=== PATIENT | female | born 1940 | race Caucasian/White ===

== ENCOUNTER 2016-10-27 03:00 | Emergency (ER) | payer MEDICARE ==
[~2016-10-27] VITALS: Ht 165.1 cm; Wt 60.5 kg
[2016-10-27] VITALS (7 sets, daily range): BP systolic 147–180; BP diastolic 44–66; PULSE 60–64; RESP 12–16; O2SAT 95–97
[~2016-10-27 03:00] MED LIST: ALEN70TA2 PO; ALIR75PE SQ; ATOR80TA PO; CALC600T12 PO; CHOL100043 PO; FURO80TA83 PO; HYDR100T27 PO; ISOS60TA2 PO; LORA-303 PO; METO50TA3 PO; NITR0.4T SL; POTA10TA12 PO; WARF1TAB6 PO
--- NOTE | 2016-10-27 03:26 | ED.REPORT ---
HPI-General Illness Date of Service Oct 27, 2016 ED Provider: Dr. Aaron Zavala M.D. A 76 year old female with a medical history including CAD, hypertension, CHF, and atrial fibrillation s/p CABG and pacemaker placement presents to the ED with diaphoresis onset one hour prior to arrival. Associated symptoms include palpitations, lightheadedness, and shakiness. The patient took Nitro x1 at onset without relief. She denies chest pain, shortness of breath, cough, fever, arm pain, neck pain, or jaw pain. The patient has had similar symptoms in the past secondary to her CAD, though her prior anginal episodes involved arm pain and shoulder pain. This seems similar, but she denies any arm pain or shoulder pain. She states she is having palpitations as we are watching her on the monitor, and there is no abnormal cardiac activity noted. Nursing Notes Stated Complaint: SWEATS/DIZZINESS Chief Complaint: General Complaint Nursing Notes Reviewed: Yes Allergies: Coded Allergies: allopurinol (Verified Allergy, Severe, 10/27/16) niacin (Verified Allergy, Severe, 10/27/16) TAPE (Verified Allergy, Unknown, UNKNOWN, 10/27/16) Scheduled Alendronate Sodium (Fosamax) 70 Mg Tablet 70 MG PO WEEKLY Alirocumab (Praluent Pen) 75 Mg/Ml Pen.injctr 75 MG SQ [id number] Atorvastatin (Lipitor) 80 Mg Tablet 80 MG PO DAILY Calcium Carbonate (Calcium) 600 Mg Tablet 1,000 MG PO DAILY Cholecalciferol (Vitamin D3) (Vitamin D) 1,000 Unit Tablet 3,000 UNIT PO DAILY Furosemide (Lasix) 80 Mg Tablet 160 MG PO DAILY Hydralazine (Hydralazine) 100 Mg Tablet 100 MG PO BID Isosorbide MN ER (Isosorbide MN ER) 60 Mg Tab.er.24h 120 MG PO DAILY Metoprolol Tartrate (Metoprolol Tartrate) 50 Mg Tablet 50 MG PO QPM Metoprolol Tartrate (Metoprolol Tartrate) 50 Mg Tablet 100 MG PO QAM Nitroglycerin SL (Nitrostat) 0.4 Mg Tab.subl 0.4 MG SL Q5MIN Potassium Chloride ER (Potassium Chloride ER) 10 Meq Tablet 20 MEQ PO DAILY TAKE WITH FOOD Warfarin Sodium (Warfarin Sodium) 1 Mg Tablet 1.5 MG PO 2x weekly take 1.5mg on wednesday and Warfarin Sodium (Warfarin Sodium) 1 Mg Tablet 1 MG PO 5xweekly take 1mg on wednesday,wednesday,wednesday,wednesday.wednesday Scheduled PRN Lorazepam (Ativan) 1 Mg Tablet 1 MG PO DAILY PRN PRN For Insomnia General Time Seen by MD: 03:25 Chief Complaint Other (Diaphoresis) Hx Obtained From: Patient Arrived By: Walk-in Sudden in Onset?: Yes Onset Occurred: 1 - 4 hours ago Symptom Duration: Since onset Severity: Current: No pain currently Severity: Maximum: No pain Associated with: Denies: Chest pain, Cough, Fever, Shortness of breath Pertinent Negative: Relieved by nothing Context Related History: Reports Coronary artery disease Recent Healthcare: No recent doctor visit Similar Sx Previous: Yes Past Medical History Past Medical History Coronary artery disease Atrial fibrillation status post AV emeka ablation (on Coumadin). Known severe mitral regurgitation. Hypertension. History of congestive heart failure likely secondary to underlying valvular disease. History of gout. Hyperlipidemia. Mild aortic stenosis. Chronic anemia. Past Surgical History CABG x4 in 1971 and x3 in 1985 Cardiac pacemaker placement in 2003. Smoking History Former Smoker Social History Other Social History: Good social support, Ambulatory Status Independent Review of Systems + Shakiness - Jaw pain Full Review of Systems Constitutional: Denies: Fever Respiratory: Denies: Non-productive cough, Shortness of breath Cardiovascular: Reports: Palpitations, Denies: Chest pain Musculoskeletal: Denies: Extremity pain, Neck pain Skin: Reports Diaphoresis Neurologic: Reports: Lightheaded Complete sys rev & neg: except as marked. Physical Exam Vital Signs Vital Signs Date Time Temp Pulse Resp B/P Pulse Ox O2 Delivery O2 Flow Rate FiO2 10/27/16 06:31 62 12 147/44 95 Room Air 10/27/16 05:44 60 14 163/51 96 Room Air 10/27/16 04:48 60 12 171/56 97 Room Air 10/27/16 04:00 60 12 163/51 96 Room Air 10/27/16 03:45 60 12 170/44 96 Room Air 10/27/16 03:04 35.9 64 16 180/66 95 Room Air Initial VS: Reviewed Head / Eyes: Atraumatic, Normocephalic ENT: Conjunctiva normal, No scleral icterus Respiratory: Breath sounds normal, Clear to auscultation, No respiratory distress Extremities: Vascular intact, Neuro intact, No swelling Skin: Warm, Dry, No cyanosis Neurologic: Alert, Oriented, Nonfocal Psychiatric: Mood/affect normal, Behavior normal, Normal thought content General/Constitutional: Awake, Alert Distress / Hydration: Positive: Dehydration mild Behavior: Positive: Anxious Neck: Supple, Full range of motion, No JVD Cardiovascular: Heart rate NL, Regular rhythm, Heart sounds NL, No gallop, No rubs Interpretation & Diagnostics Lab Results Interpretation Result Diagram: 10/27/16 0409 10/27/16 0409 Test 10/27/16 04:09 10/27/16 06:12 White Blood Count 6.9th/mm3 (3.8-10.1) Red Blood Count 3.30mil/mm3 (3.90-5.20) Hemoglobin 11.4g/dL (12.0-15.6) Hematocrit 34.2% (35.0-46.0) Mean Corpuscular Volume 103.6fL (81-100) Mean Corpuscular Hemoglobin 34.5pg (27.0-35.0) Mean Corpuscular Hemoglobin Concent 33.3% (32.0-37.0) Red Cell Distribution Width 13.6% (12.3-15.4) Platelet Count 118bil/L (150-400) Neutrophils (%) (Auto) 77.3% (40-74) Lymphocytes (%) (Auto) 12.6% (14-46) Monocytes (%) (Auto) 8.4% (4-12) Eosinophils (%) (Auto) 1.2% (0-5) Basophils (%) (Auto) 0.4% (0-3) Prothrombin Time 25.0sec (8.1-12.5) Prothromb Time International Ratio 2.30ratio Activated Partial Thromboplast Time 36.6sec (22.8-33.0) D-Dimer 0.6mg/L (<0.50) Sodium Level 135mEq/L (134-144) Potassium Level 4.0mEq/L (3.5-5.2) Chloride Level 93mEq/L (97-108) Carbon Dioxide Level 26mmol/L (18-29) Blood Urea Nitrogen 68mg/dL (8-27) Creatinine 1.41mg/dL (0.57-1.00) Estimat Glomerular Filtration Rate 52mL/min (>59) Glucose Level 169mg/dL (60-99) Calcium Level 9.1mg/dL (8.5-10.1) Magnesium Level 2.3mg/dL (1.6-2.6) Total Bilirubin 1.2mg/dL (0.0-1.2) Aspartate Amino Transf (AST/SGOT) 33U/L (0-50) Alanine Aminotransferase (ALT/SGPT) 15U/L (0-32) Alkaline Phosphatase 63U/L (25-165) Pro-B-Type Natriuretic Peptide 2651pg/mL (0-738) Total Protein 7.0g/dL (6.4-8.4) Albumin 4.5g/dL (3.4-5.0) ECG Interpretation ECG Interpretation: Afib/flut and V-paced complexes rate 60 Time: 03:14 Interpreted by: ED physician Abnormal Rate: 180 ECG Interpretation: Ventricular-paced complexes rate 67 Time: 05:12 Interpreted by: ED physician X-Ray Chest Interpretation Chest Xray Interpretation: Massive cardiomegaly No acute findings otherwise View: Portable, 1 view Interpretation / Wet Read by: Wet read ED physician Re-Eval/Medical Decision Med Decision/Clinical Course 76-year-old with a long history of coronary disease, including a CABG in the 70s, presents with some diaphoresis and just general malaise, some dizziness and palpitations with no cardiac correlate. Her story is nevertheless concerning, and eighty 2R rule out is underway. EKG is paced, but without ectopy, and her complaint of palpitations is correlated with a monitor and no abnormal beats are noted. Her initial troponin is negative. She is signed out of [address] Benoit pending a second troponin. A repeat EKG is unchanged. Source of Hx: Old records Time of Eval: 06:02 Patient Status: Condition improved Re-Evaluation/Progress Note: Care to be transferred to Dr. Benoit Discharge & Departure Shift Change Sign-Out Patient Care Transferred: Yes (Dr. Benoit) Discussed Complaint(s): Yes Laboratory Evaluation: Ordered, not yet done Imaging Studies: Imaging discussed Response to Therapy: Improved Primary Impression: Dizziness Additional Impression: Palpitations Discharge Condition All VS Reviewed: Yes Condition: Improved Referrals: Mary Smith MD (PCP) Care Transferred to: Dr. Benoit Care Transferred at: 06:00 Jenniferibdaisy Attestation Portions of this note were transcribed by Annel Vance. I, Dr. Zavala, personally performed the history, physical exam, and medical decision-making; I reviewed and confirmed the accuracy of the information in the transcribed note. Signed by: Jennifer Ayers, 10/27/2016, 06:03 copies to: Mary Smith MD, Christopher W MD Oct 27, 2016 03:26 ANNEL VANCE Oct 27, 2016 03:41
[2016-10-27 04:12] LABS: BASOPHILS % (AUTO) 0.4 % (0-3); EOSINOPHILS % (AUTO) 1.2 % (0-5); MONOCYTES % (AUTO) 8.4 % (4-12); Mean Corpuscular Hemoglobin 34.5 pg (27.0-35.0); Mean Corpuscular Volume 103.6 fL (81-100); NEUTROPHILS % (AUTO) 77.3 % (40-74); Platelet Count 118 bil/L (150-400)
[2016-10-27] MEDS ORDERED: 0.9% Sodium Chloride 1,000 ML IV ONE (04:15)
[2016-10-27 04:34] LABS: D-DIMER 0.6 mg/L (<0.50); INR 2.3 ratio
[2016-10-27 04:36] LABS: TROPONIN T 0.01 ug/L (0.0-0.011)
[2016-10-27 04:48] LABS: Magnesium 2.3 mg/dL (1.6-2.6)
--- NOTE | 2016-10-27 09:26 | DRSVH ---
PROCEDURE: X-RAY CHEST ONE VIEW, PORTABLE ([id number]) INDICATIONS: dizzy weak TECHNIQUE: One view of the chest was acquired. COMPARISON: [facility], , CHEST 1VW (PORTABLE), 08/01/2013, 13:24. FINDINGS: Surgical changes and devices: Stable positioning of dual chamber left cardiac pacemaker. Median ster notomy. Lungs and pleura: There is interstitial prominence lumbar to prior examination. Mediastinum: Mediastinal contours appear normal. Heart size is enlarged. Bones and chest wall: No suspicious bony lesions. Overlying soft tissues appear unremarkable. IMPRESSION: Persistent cardiomegaly and chronic interstitial opacities suggesting mild chronic CHF. Correlate clinically. Dictated by: Travis SHUKLA Interpreted: Chari Coffman MD on 10/27/2016 at 9:25 Transcribed by: MIRI on 10/27/2016 at 9:26 Approved by: Chari Coffman M.D. on 10/27/2016 at 16:39
== END 2016-10-27 07:47 | disposition home or self-care (01) ==
LOC: SED 03:00
DX: R42 Dizziness and giddiness (principal); R00.2 Palpitations; I11.0 Hypertensive heart disease with heart failure; I50.9 Heart failure, unspecified; I25.10 Atherosclerotic heart disease of native coronary artery without angina pectoris; E78.5 Hyperlipidemia, unspecified; Z87.891 Personal history of nicotine dependence; Z95.1 Presence of aortocoronary bypass graft; Z79.01 Long term (current) use of anticoagulants; Z88.8 Allergy status to other drugs, medicaments and biological substances
CPT/HCPCS: 36415; 71010; 80053; 83735; 83880; 84484; 85025; 85379; 85610; 85730; 93005; 96360; 99285; J7030